=== PATIENT | female | born 1940 | race Caucasian/White ===

== ENCOUNTER 2025-03-27 08:59 | Outpatient (CLI) | payer MEDICARE, OTHER, SELFPAY ==
--- NOTE | 2025-03-27 10:23 | P.ANES_ITS ---
Anesthesia Charges Start Date/Time Anesthesia Start Date: 03/27/25 Anesthesia Start Time: 09:55 Stop Date/Time Anesthesia Stop Date: 03/27/25 Anesthesia Stop Time: 10:22 Summary Extremes of Age - Over 70 or under 1: SHOE RECONDITIONER Coding CPT Codes CPT Codes: LUCHO LWR INTST NDSC NOS - [id number] ([id number]) P1 - NORMAL HEALTHY PATIENT, QK - SHELTER CASE MANAGER 2-4 CNCRNT ANELauri PROC, QX - SHOE RECONDITIONER SVC W/ MD MED DIRECTION Additional Codes: Summary - Extremes of Age - Over 70 or under 1: SHOE RECONDITIONER ([id number])
--- NOTE | 2025-03-27 10:23 | W.ANESCHARGE ---
Anesthesia Charges Start Date/Time Anesthesia Start Date: 03/27/25 Anesthesia Start Time: 09:55 Stop Date/Time Anesthesia Stop Date: 03/27/25 Anesthesia Stop Time: 10:22 Summary Extremes of Age - Over 70 or under 1: SOFT BOARDER Coding CPT Codes CPT Codes: LUCHO LWR INTST NDSC NOS - [id number] ([id number]) P1 - NORMAL HEALTHY PATIENT, QK - GEOPHYSICAL SUPPORT SPECIALIST 2-4 CNCRNT ANELauri PROC, QX - SOFT BOARDER SVC W/ MD MED DIRECTION Additional Codes: Summary - Extremes of Age - Over 70 or under 1: SOFT BOARDER ([id number])
--- NOTE | 2025-03-27 10:40 | P.ANES_ITS ---
Anesthesia Charges Start Date/Time Anesthesia Start Date: 03/27/25 Anesthesia Start Time: 09:55 Stop Date/Time Anesthesia Stop Date: 03/27/25 Anesthesia Stop Time: 10:22 Summary Extremes of Age - Over 70 or under 1: MDA Coding CPT Codes CPT Codes: LUCHO LWR INTST NDSC NOS - [id number] ([id number]) P1 - NORMAL HEALTHY PATIENT, QK - REAL ESTATE RECRUITER 2-4 CNCRNT ANELauri PROC, QX - COMMUNITY SERVICE AIDE SVC W/ MD MED DIRECTION Additional Codes: Summary - Extremes of Age - Over 70 or under 1: MDA ([id number])
--- NOTE | 2025-03-27 10:40 | W.ANESCHARGE ---
Anesthesia Charges Start Date/Time Anesthesia Start Date: 03/27/25 Anesthesia Start Time: 09:55 Stop Date/Time Anesthesia Stop Date: 03/27/25 Anesthesia Stop Time: 10:22 Summary Extremes of Age - Over 70 or under 1: MDA Coding CPT Codes CPT Codes: LUCHO LWR INTST NDSC NOS - [id number] ([id number]) P1 - NORMAL HEALTHY PATIENT, QK - CUSHION ASSEMBLER 2-4 CNCRNT ANELauri PROC, QX - TRANSPLANT CASE MANAGER SVC W/ MD MED DIRECTION Additional Codes: Summary - Extremes of Age - Over 70 or under 1: MDA ([id number])
== END 2025-03-27 09:00 | disposition home or self-care (01) ==
LOC: OP CLINIC 09:04
PROVIDERS: PCP Family Medicine; Visit Provider Internal Medicine Gastroenterology
DX: K52.9 Noninfective gastroenteritis and colitis, unspecified (principal); K57.30 Diverticulosis of large intestine without perforation or abscess without bleeding
CPT/HCPCS: 00811; 45380; 88305; 99100; J2704